=== PATIENT | male | born 1945 | race Caucasian/White ===

== ENCOUNTER 2021-12-24 17:41 | Emergency (ER) | payer OTHER ==
--- OUTSIDE RECORDS SUMMARY | 2021-12-24 17:44 | XMS REPORT | Continuity of Care Document ---
:1945 Author Organization [facility] t Address [address] [place] [address] Care Team Providers Name Role Phone Varun Attending Clinician Unavailable FALLON Attending Clinician Unavailable MARLEN Attending Clinician Unavailable MOISES Attending Clinician Unavailable MD STEFANY DE LEON Attending Clinician Unavailable Varun Admitting Clinician Unavailable DEYANIRA Admitting Clinician Unavailable MD DEYANIRA Admitting Clinician Unavailable Payers Payer Name Policy Type Policy Number Effective Date Expiration Date S [facility] [id number] (MEDICARE REPLACEMENT/ADVANTAGE - PPO) [employer] (MEDICARE [id number] REPLACEMENT/ADVANTAGE - PPO) [employer] CLAIMS OFFICE [id number] Problems Condition Condition Condition Status Onset Resolution Last Treating Co mments Source Name Details Category Date Date Treatment Clinician Date Candidiasi Candidiasi Problem Active [facility] s of skin s of Skin 09-09 Fami ly 00:00: Practic 00 e Coronary Coronary Problem Active 2020-09 [facility] atheroscle Atheroscle 0-19 eduardo rosis rosis 00:00: Practic 00 e History of 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[facility] 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 00:00: Practi c of of 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 Diabetes 3-30 Family mellitus Mellitus 00:00: Practi c 00 e General General Problem Active [facility] finding of Finding of 3-02 eduardo observatio Observatio 00:00: Pr actic n of n of e patient Patient Hyperlipid Hyperlipid Problem Active 2016-09 [facility] emia emia 2- Family 00:00: Practic 00 e Obesity Obesity Problem Active 2016-09 [facility] 2- Family 00:00: Practic 00 e Hypothyroi Hypothyroi Problem Active 2016-09 [facility] dism dism 2- Family 00:00: Practic 00 e Vitamin D Vitamin D Problem Active 2016-09 Keshawn goldsmith deficiency Deficiency 2- Fa eduardo 00:00: Practic 00 e Obstructiv Obstructiv Problem Active 2016-09 [facility] e sleep e Sleep 2- Family apnea Apnea 00:00: Practic syndrome Syndrome 00 e Essential Essential Problem Active 2016-09 Keshawn goldsmith hypertensi Hypertensi 2- Fa eduardo on on 00:00: Practic 00 e 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[facility] 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 00:00: Pr actic 00 e Seasonal Seasonal Problem Active 2016-09 [facility] allergic Allergic 2- Family rhinitis Rhinitis 00:00: Practi c 00 e Gastroesop Gastroesop Problem Active 2016-09 [facility] hageal hageal 2- Family reflux Reflux 00:00: Practic disease Disease 00 e without without esophagiti Esophagiti s s Hypertensi Hypertensi Problem Active 2016-09 [facility] ve ve 2- Family disorder Disorder 00:00: Practi c 00 e Backache Backache Problem Active 2016-09 [facility] 2- Family 00:00: Practic 00 e Clinical Clinical Problem Active 2016-09 [facility] finding Finding 2- Family 00:00: Practic 00 e Finding of Finding of Problem Active 2016-09 [facility] esophagus Esophagus 2- Fami ly 00:00: Practic 00 e Allergies, Adverse Reactions, Alerts Allergy Allergy Status Severity Reaction(s) Onset Inactive Treating Comm ents Source Name Type Date Date Clinician No Known DA Active U 2017-09 [facility]-26 [place] [facility] No Known DA Active U 2017-09 [facility] [place] No Known DA Active U [facility] Allergie 7-05 [place] [facility] 00:[facility] NO KNOWN Drug Active [facility] ALLERGIE [facility] Social History Smoking Status Start Date Stop Date Source Former Smoker [facility] Medications Ordered Filled Start Stop Current Ordering Indication Dosage Frequency Signature Comments Components Source Medication Medication Date Date Medication? Clinician (SIG) Name Name Camryn LukeuDash No 3strip( Q1D Accu-[place] María Elena Plus María Elena Plus s) María Elena Plus Family test strips test strips test P ractic Take 3 Take 3 strips e strips strips Take 3 every day every day strips by miscell. by miscell. every day route for route for by 90 days. 90 days. miscell. route for 90 days. acetaminoph acetaminoph No acetaminop [facility] en 300 en 300 hen 300 Family mg-codeine mg-codeine mg-codeine Practic 30 mg 30 mg 30 mg e tablet tablet tablet acetaminoph acetaminoph No 2capsul Q6H acetaminop [facility] en 500 mg en 500 mg e(s) hen 500 mg Family capsule capsule capsule Practi c Take 2 Take 2 Take 2 e capsules capsules capsules every 6 every 6 every 6 hours by hours by hours by oral route. oral route. oral route. amlodipine amlodipine No amlodipine [facility] 5 mg tablet 5 mg tablet 5 mg F amily Take 1 Take 1 tablet Practic tablet tablet Take 1 e every day every day tablet by oral by oral every day route. route. by oral route. BD Jessica 2nd BD Jessica 2nd No BD Jessica [facility] Gen Pen Gen Pen 2nd Gen Family Needle 32 Needle 32 Pen Needle Practic gauge x gauge x 32 gauge x e " " " carvedilol carvedilol No carvedilol [facility] 25 mg 25 mg 25 mg Family tablet Take tablet Take tablet Practic 1 tablet 1 tablet Take 1 e twice a day twice a day tablet by oral by oral twice a route. route. day by oral route. Centrum Centrum No Centrum [facility] e Silver Silver Silver Family Practic e clopidogrel clopidogrel No clopidogre [facility] 75 mg 75 mg l 75 mg Family tablet Take tablet Take tablet Practic 1 tablet 1 tablet Take 1 e every day every day tablet by oral by oral every day route. route. by oral route. Comfort EZ Comfort EZ No 1needle Q1D Comfort EZ [place] Pen [place] Pen [place] (s) Pen F amily 31 gauge x 31 gauge x [place] 31 Practic 3/16" Take 3/16" Take gauge x e 1 needle 1 needle 316" Take every day every day 1 needle by miscell. by miscell. every day route as route as by directed. directed. miscell. route as directed. CoQ10 10 mg CoQ10 10 mg No 1capsul Q1D CoQ10 10 [facility] capsule capsule e(s) mg capsule Fam irma Take 1 Take 1 Take 1 Practic capsule capsule capsule e every day every day every day by oral by oral by oral route as route as route as directed. directed. directed. cranberry cranberry No cranberry [facility] Family Practic e doxycycline doxycycline No doxycyclin [facility] monohydrate monohydrate e F amily 100 mg 100 mg monohydrat Pract ic tablet tablet e 100 mg e tablet famotidine famotidine No famotidine [facility] 20 mg 20 mg 20 mg Family tablet Take tablet Take tablet Practic 1 tablet 1 tablet Take 1 e twice a day twice a day tablet by oral by oral twice a route as route as day by directed directed oral route for 90 for 90 as days. days. directed for 90 days. fluocinonid fluocinonid No fluocinoni [facility] e 0.05 % e 0.05 % de 0.05 % Fa eduardo topical topical topical Practi c solution solution solution e levothyroxi levothyroxi No levothyrox [facility] ne 50 mcg ne 50 mcg ine 50 mcg Family tablet TAKE tablet TAKE tablet Practic ONE TABLET ONE TABLET TAKE ONE e BY MOUTH BY MOUTH TABLET BY EVERY EVERY MOUTH MORNING ON MORNING ON EVERY AN EMPTY AN EMPTY MORNING ON STOMACH STOMACH AN EMPTY STOMACH losartan 50 losartan 50 No losartan [facility] mg-hydrochl mg-hydrochl 50 F amily orothiazide orothiazide mg-hydroch Practic 12.5 mg 12.5 mg lorothiazi e tablet tablet de 12.5 mg tablet metformin metformin No 1 Q1D metformin [facility] ER 500 mg ER 500 mg ER 500 mg Family 24 hr 24 hr 24 hr Practic tablet,exte tablet,exte tablet,ext e nded nded ended release release release Take 1 Take 1 Take 1 tablet tablet tablet every day every day every day by oral by oral by oral route for route for route for 30 days. 30 days. 30 days. montelukast montelukast No montelukas [facility] 10 mg 10 mg t 10 mg Family tablet Take tablet Take tablet Practic 1 tablet 1 tablet Take 1 e every day every day tablet by oral by oral every day route. route. by oral route. nystatin nystatin No nystatin Keshawn agus 100,000 100,000 100,000 Family unit/gram unit/gram unit/gram Practic topical topical topical e cream APPLY cream APPLY cream TO THE TO THE APPLY TO AFFECTED AFFECTED THE AREA(S) BY AREA(S) BY AFFECTED TOPICAL TOPICAL AREA(S) BY ROUTE 2 ROUTE 2 TOPICAL TIMES PER TIMES PER ROUTE 2 DAY DAY TIMES PER DAY Ozempic Ozempic No .5mg Q1W Ozempic [facility] 0.25 mg or 0.25 mg or 0.25 mg or Family 0.5 mg (2 0.5 mg (2 0.5 mg (2 Practic mg/1.5 mL) mg/1.5 mL) mg/1.5 mL) e subcutaneou subcutaneou subcutaneo s pen s pen us pen injector injector injector Inject 0.5 Inject 0.5 Inject 0.5 mg every mg every mg every week by week by week by subcutaneou subcutaneou subcutaneo s route. s route. us route. rosuvastati rosuvastati No rosuvastat [facility] n 20 mg n 20 mg in 20 mg Famil y tablet Take tablet Take tablet Practic 1 tablet 1 tablet Take 1 e every day every day tablet by oral by oral every day route. route. by oral route. sildenafil sildenafil No sildenafil [facility] 100 mg 100 mg 100 mg Family tablet tablet tablet Practic e tramadol 50 tramadol 50 No tramadol [facility] mg tablet mg tablet 50 mg Fami ly Take 1 Take 1 tablet Practic tablet tablet Take 1 e every 6 every 6 tablet hours by hours by every 6 oral route. oral route. hours by oral route. Travatan Z Travatan Z No Travatan Z [facility] 0.004 % eye 0.004 % eye 0.004 % Family drops drops eye drops Practic INSTILL 1 INSTILL 1 INSTILL 1 e DROP INTO DROP INTO DROP INTO AFFECTED AFFECTED AFFECTED EYE(S) BY EYE(S) BY EYE(S) BY OPHTHALMIC OPHTHALMIC OPHTHALMIC ROUTE ONCE ROUTE ONCE ROUTE ONCE DAILY INTHE DAILY INTHE DAILY EVENING EVENING INTHE EVENING Tresiba Tresiba No Tresiba [facility] FlexTouch FlexTouch FlexTouch Family U-200 U-200 U-200 Practic insulin 200 insulin 200 insulin e unit/mL (3 unit/mL (3 200 mL) mL) unit/mL (3 subcutaneou subcutaneou mL) s pen Give s pen Give subcutaneo 30 units in 30 units in us pen AM and AM and Give 30 increase as increase as units in directed: directed: AM and TDD 80 TDD 80 increase as directed: TDD 80 Vitamin D2 Vitamin D2 No Vitamin D2 [facility] Family Practic e Immunizations Ordered Immunization Filled Immunization Date Status Commen ts Source Name Name COVID-19, mRNA, COVID-19, mRNA, 2020-11-02 Completed [facility] Family LNP-S, PF, 30 LNP-S, PF, 30 00:00:00 Practice mcg/0.3 mL dose mcg/0.3 mL dose (Pfizer-BioNTech) (Pfizer-BioNTech) influenza, influenza, 2020-08-04 Completed [facility] injectable, injectable, 00:00:00 Practice quadrivalent quadrivalent Non-US Vaccine Non-US Vaccine 2019-10-14 Completed [facility] e Family COVID-19 PS COVID-19 PS 00:00:00 Practice (EpiVacCorona) (EpiVacCorona) Vital Signs Vital Name Observation Time Observation Value Comments Source BP Diastolic 2021-09-09 00:00:00 82 mm[Hg] [facility] Practice Height 2021-09-09 00:00:00 68 [in_i] [facility] Practice BMI (Body Mass 2021-09-09 00:00:00 32.6 kg/m2 [facility] e Family Index) Practice BP Systolic 2021-09-09 00:00:00 127 mm[Hg] [facility] Practice Body Weight 2021-09-09 00:00:00 214.6 [lb_av] [facility] Practice BP Diastolic 2021-06-10 00:00:00 68 mm[Hg] [facility] Practice Height 2021-06-10 00:00:00 68 [in_i] [facility] Practice BMI (Body Mass 2021-06-10 00:00:00 33.5 kg/m2 [facility] e Family Index) Practice BP Systolic 2021-06-10 00:00:00 108 mm[Hg] [facility] Practice Body Weight 2021-06-10 00:00:00 220.6 [lb_av] [facility] Practice BP Diastolic 2021-03-01 00:00:00 57 mm[Hg] [facility] Practice Height 2021-03-01 00:00:00 68 [in_i] [facility] Practice BMI (Body Mass 2021-03-01 00:00:00 33 kg/m2 [facility] Family Index) Practice BP Systolic 2021-03-01 00:00:00 121 mm[Hg] [facility] Practice Body Weight 2021-03-01 00:00:00 217 [lb_av] [facility] Practice BP Diastolic 2020-12-01 00:00:00 78 mm[Hg] [facility] Practice Height 2020-12-01 00:00:00 68 [in_i] [facility] Practice BMI (Body Mass 2020-12-01 00:00:00 33.1 kg/m2 [facility] Family Index) Practice BP Systolic 2020-12-01 00:00:00 134 mm[Hg] [facility] Practice Body Weight 2020-12-01 00:00:00 218 [lb_av] [facility] Practice BP Diastolic 2020-08-06 00:00:00 80 mm[Hg] [facility] Height 2020-08-06 00:00:00 68 [in_i] [facility] Practice BMI (Body Mass 2020-08-06 00:00:00 33.3 kg/m2 [facility] Family Index) Practice BP Systolic 2020-08-06 00:00:00 148 mm[Hg] [facility] Body Weight 2020-08-06 00:00:00 219 [lb_av] [facility] Procedures Procedure Date / Time Performed Performing Clinician [facility] e Knee Replacement 2018-07-05 00:00:00 [facility] Gustavo solis Practice Placement of Stent in 2017-04-04 00:00:00 [facility] Practice Colonoscopy 2015-09-04 [facility] 2014-09-04 00:00:00 [facility] Gustavo solis Practice Plan of Care Planned Activity Planned Date Details Comments Source Diagnostic Test 2021-09-09 glucose, fingerstick, Keshawn agus Family Pending 00:00:00 blood [code = Practice glucose, fingerstick, blood] Diagnostic Test 2021-09-09 hemoglobin A1C, [place] Kristal bhatt Pending 00:00:00 fingerstick [code = Practice hemoglobin A1C, fingerstick] Encounters Start End Encounter Admission Attending Care Care Encounter Source Date/Time Date/Time Type Type Clinicians Facility Department ID 2021-09-29 [facility] [id number] [facility] [address] 14:02:32 [id number] [facility] ent Clinics 2021-09-29 Outpatient [facility] [id number] [facility] [address] 12:41:00 [id number] [facility] 2021-09-30 2021-09-30 Outpatient Daniel_T VFP VFP [id number] [address] [place] [address] 06:50:00 06:50:00 [id number] Family Practic e 2021-09-19 2021-09-19 Outpatient Daniel_T VFP VFP [id number] [address] [place] [address] 07:04:00 07:04:00 [id number] Family Practic e 2021-09-09 2021-09-09 Outpatient Daniel_T VFP VFP [id number] [address] [place] [address] 02:03:00 02:03:00 [id number] Family Practic e 2021-09-09 2021-09-09 Otf VFP [place] - [id number] [facility] 00:00:00 00:00:00 [facility] Family IvyJason - Kyle hightower MD: [id number] [address] [facility], [address], [place] [address] , Ph. 2021-08-06 2021-08-06 Outpatient Daniel_T VFP VFP [id number] [address] [place] [address] 05:14:00 05:14:00 [id number] Family Practic e 2021-08-02 2021-08-02 Outpatient [facility] [id number] [address] [place] [address] 00:00:00 00:00:00 [facility] 2021-07-08 2021-07-08 Outpatient Daniel_T VFP VFP [id number] [address] [place] [address] 03:39:00 03:39:00 [id number] Family Practic e 2021-06-10 2021-06-10 Outpatient Daniel_T VFP VFP [id number] [address] [place] [address] 11:04:00 11:04:00 [id number] Family Practic e 2021-06-10 2021-06-10 Otf VFP [place] - [id number] [facility] ill[facility] 00:00:00 00:00:00 [facility] Family IvyJason - Kyle hightower MD: [id number] Emili lund [address] [facility] [address], [place] [address] , Ph. 2021-03-31 2021-03-31 Outpatient Daniel_T VFP VFP [id number] [address] [place] [address] 04:19:00 04:19:00 [id number] Family Practic e 2021-03-31 2021-03-31 Outpatient Daniel_T VFP VFP [id number] [address] [place] [address] 04:19:00 04:19:00 [id number] Family Practic e 2021-03-31 2021-03-31 Outpatient Daniel_T VFP VFP [id number] [address] [place] [address] 04:19:00 04:19:00 [id number] Family Practic e 2021-03-06 2021-03-06 Outpatient Daniel_T VFP VFP [id number] [address] [place] [address] 04:49:00 04:49:00 [id number] Family Practic e 2021-03-01 2021-03-01 Outpatient Daniel_T VFP VFP [id number] [address] [place] [address] 02:46:00 02:46:00 [id number] Family Practic e 2021-03-01 2021-03-01 Otf VFP [place] - [id number] V illage 00:00:00 00:00:00 [facility] Family IvyJason - Kyle hightower MD: [id number] BROOKLYN_DEIRDRE_Luis e [facility] [address], [place] [address] , Ph. 2021-02-28 2021-02-28 Outpatient Daniel_T VFP VFP [id number] [address] [place] [address] 10:21:00 10:21:00 [id number] Family Practic e 2021-01-27 2021-01-27 Outpatient Daniel_T VFP VFP [id number] [address] [place] [address] 12:10:00 12:10:00 [id number] Family Practic e 2021-01-27 2021-01-27 Outpatient Daniel_T VFP VFP [id number] [address] [place] [address] 12:10:00 12:10:00 [id number] Family Practic e 2021-01-03 2021-01-03 Outpatient Daniel_T VFP VFP [id number] [address] [place] [address] 02:46:00 02:46:00 [id number] Family Practic e 2021-01-03 2021-01-03 Outpatient Daniel_T VFP VFP [id number] 09-23 [facility] 02:46:00 02:46:00 [id number] Family Practic e 2020-12-22 2020-12-22 [facility]patient [facility] [id number] [address] [place] [address] 00:00:00 00:00:00 CLEVE [address] 2020-12-15 2020-12-15 Outpatient [facility] [id number] [address] [place] [address] 00:00:00 00:00:[id number] 2020-12-03 2020-12-03 Outpatient Daniel_T VFP VFP [id number] 09-23 [facility] 07:52:00 07:52:00 [id number] Family Practic e 2020-12-01 2020-12-01 Outpatient Daniel_T VFP VFP [id number] 09-23 [facility] 05:33:00 05:33:00 [id number] Family Practic e 2020-12-01 2020-12-01 Otf VFP [place] - [id number] [facility] ill[facility] 00:00:00 00:00:00 [facility] Family Ivy, Medical - Practi katja RODRIGUEZ: [id number] VM_HOU_Shamalathi e Shadow [facility], [address], [place] [address] , Ph. 2020-11-24 2020-11-24 [facility]patient [facility] [id number] [address] [place] [address] 00:00:00 00:00:00 CLEVE [address] 2020-10-10 2020-10-10 Outpatient [facility] [id number] [facility] 11:20:00 11:20:00 [id number] ity [facility] 2020-09-18 2020-09-18 Outpatient Daniel_T VFP VFP [id number] 09-23 [facility] 01:16:00 01:16:00 [id number] Family Practic e 2020-08-10 2020-08-10 Outpatient Daniel_T VFP VFP [id number] 09-23 [facility] 07:51:00 07:51:00 [id number] Family Practic e 2020-08-06 2020-08-06 Outpatient Daniel_T VFP VFP [id number] 09-23 [facility] 03:24:00 03:24:00 [id number] Family Practic e 2020-08-06 2020-08-06 Otf VFP [place] - [id number] [facility] ill[facility] 00:00:00 00:00:00 Susy [facility] Family BijuJason - Pracximena hightower MD: [id number] VM_HOU_Blake lund Shadow [facility], [place] [address] , Ph. 2020-07-15 2020-07-15 Outpatient Biju_T VFP [facility] [id number] [facility] 12:22:00 12:22:00 [id number] Family Practic e 2020-06-29 2020-06-29 Outpatient SPENCER, [facility] [id number] Mobile 00:00:00 00:00:00 ROOSEVELT [address] 2020-05-26 2020-05-26 Outpatient GEE, [facility] [id number] Mobile 00:00:00 00:00:00 CLEVE [address] 2020-05-23 2020-05-24 Outpatient MOISES, [facility] 012 [id number] Mobile 00:00:00 00:00:00 SHANIA [address] 2020-05-06 2020-05-06 Outpatient Biju_Christina VFP [facility] [id number] - [facility] 10:46:00 10:46:00 Family Practic e Results Test Description Test Time Test Comments Results Result Comments Source Hemoglobin A1c measurement device panel 2021-09-09 11:21:23 Test Item Value Reference Range Interpretation Comme nts Hemoglobin A1C Fingerstick: (test code = Hemoglobin A1C Fingerstick :) 7.3 [facility] PracticeGlucose [Mass/volume] in Capillary [id number] 11:21:14 Test Item Value Reference Range Interpretation Comments Blood Glucose: mg/dl (test code = Blood 130 Glucose: mg/dl) [facility] PracticeGlucose [Mass/volume] in Capillary [id number] 14:21:51 Test Item Value Reference Range Interpretation Comments Blood Glucose: mg/dl (test code = Blood 237 Glucose: mg/dl) [facility] [id number]-[id number] (COVID-19) RNA [Presence] in Respiratory specimen by SAM with probe [id number] 22:58:05 Test Item Value Reference Range Interpretation Comments SARS-CoV-2 (COVID-19) RNA Not detected Not-Detected [Presence] in Respiratory specimen by SAM with probe detection (test code = 85910-1)
--- NOTE | 2021-12-24 18:42 | RAD REPORT ---
EXAM DESCRIPTION: CT - Ct Stroke Brain Wo Cont - 12/24/2021 6:34 pm CLINICAL HISTORY: Confusion/alteration of awareness COMPARISON: none TECHNIQUE: Computed axial tomography of the head was obtained. All CT scans are performed using dose optimization technique as appropriate and may include automated exposure control or mA/KV adjustment according to patient size. FINDINGS: An intracranial bleed is not seen . The ventricles are normal in caliber. No extra-axial fluid collection is noted. No significant hypodense area within the brain Fluid within the sinuses/ mastoids is not seen. IMPRESSION: No acute intracranial abnormality is seen. If patient's symptoms persist MRI of the bra in would be recommended. Dr Bowman of the emergency room was notified at 6:36 p.m. December 24, 2021
[2021-12-24 18:51] LABS: Absolute Lymphocytes (CBC) 1.2 K/uL (0.7-4.9); Hematocrit 40.9 % (39.6-49.0); Lymphocytes % 15.2 % (15.3-44.8); MPV 8.1 fL (7.6-11.3); RBC Red Blood Cell Count 4.41 M/uL (4.33-5.43)
[2021-12-24 18:55] LABS: Protime INR 0.94
[2021-12-24 18:56] LABS: Potassium 3.6 mmol/L (3.5-5.1)
--- NOTE | 2021-12-24 19:35 | RAD REPORT ---
EXAM DESCRIPTION: Izabela Single View12/24/2021 6:54 pm CLINICAL HISTORY: Confusion COMPARISON: 2014 FINDINGS: The lungs appear clear of acute infiltrate. The heart is mildly enlarged IMPRESSION: No acute abnormalities displayed
--- NOTE | 2021-12-24 19:42 | RAD REPORT ---
EXAM DESCRIPTION: CTHead angio12/24/2021 7:33 pm CLINICAL HISTORY: Blurred vision COMPARISON: None TECHNIQUE: CT angiogram of the head was obtained. 3D MIPS reconstruction performed. All CT scans are performed using dose optimization technique as appropriate and may include automated exposure control or mA/KV adjustment according to patient size. FINDINGS: Mild to moderate calcified plaque distal internal carotid arteries. Mild plaque within the distal left vertebral artery. The basilar, anterior cerebral, middle cerebral and posterior cerebral arteries are normal caliber. An aneurysm is not seen. A significant stenosis is not noted. IMPRESSION: No acute abnormality is displayed
--- NOTE | 2021-12-24 20:41 | ER ---
Nurse's Notes [facility] Name: Oskar Schmitz Age: 76 yrs Sex: Male : 1945 Arrival Date: 12/24/2021 Time: 17:45 Bed 18 Private MD: Diagnosis: Dysphasia-transient;Altered mental status, unspecified-transient and brief Presentation: 12/24 18:09 Chief complaint: Patient states: I started feeling disoriented 2 and a half hours ago. jb4 I thought it was because of my BGL. I bought a candy bar it didn't help. I had trouble getting home. My did a stroke scale and it was fine. Patient's son or daughter states: I noticed he has had intermittent trouble speaking. He is also unsteady, and he has moments when he seems to think more clearly and then becomes more disoriented. Code stroke called. Coronavirus screen: At this time, the client does not indicate any symptoms associated with coronavirus-19. Ebola Screen: No symptoms or risks identified at this time. Initial Sepsis Screen: Does the patient meet any 2 criteria? No. Patient's initial sepsis screen is negative. Does the patient have a suspected source of infection? No. Patient's initial sepsis screen is negative. Risk Assessment: Do you want to hurt yourself or someone else? Patient reports no desire to harm self or others. Onset of symptoms was December 24, 2021. Transition of care: patient was not received from another setting of care. 18:09 Method Of Arrival: Ambulatory jb4 18:09 Acuity: DESTINEE 2 jb4 18:15 No acute neurological deficit is noted. The patients blood glucose was checked before jd3 arriving to the hospital and was found to be normal. Triage Assessment: 18:15 Neuro: Reports problems talking. jd3 18:15 The onset of the patients symptoms was December 24, 2021 at 15:30. jd3 Stroke Activation: Symtpom onset >3 hours and < 6 hours Physician: Stroke Attending; Name: ; Notified At: ; Arrived At: Physician: Chief Stroke Resident; Name: ; Notified At: ; Arrived At: Physician: Stroke Resident; Name: ; Notified At: ; Arrived At: Physician: ED Attending; Name: ; Notified At: ; Arrived At: Physician: ED Resident; Name: Dr. Pereyra; Notified At: 18:14; Arrived At: 18:15 Historical: - Allergies: 18:20 No Known Allergies; jb4 - Home Meds: 18:21 Plavix Oral [Active]; Metformin Oral [Active]; trigenta [Active]; ozempic [Active]; jb4 - PMHx: 18:20 UT; DM; HTN; jb4 - PSHx: 18:20 heart stents; jb4 - Immunization history:: Adult Immunizations up to date. - Social history:: Smoking status: Patient denies any tobacco usage or history of. Screenin:20 Abuse screen: Denies threats or abuse. Nutritional screening: No deficits noted. jd3 Tuberculosis screening: No symptoms or risk factors identified. 18:20 Fall Risk IV access (20 points). Ambulatory Aid- None/Bed Rest/Nurse Assist (0 pts). jd3 Gait- Normal/Bed Rest/Wheelchair (0 pts) Mental Status- Oriented to own ability (0 pts). Total Kaba Fall Scale indicates No Risk (0-24 pts). Assessment: 18:20 VAN Scoring: Arm Drift: Patients demonstrates NO arm weakness. Patient is VAN Negative. jd3 The patient has not been NPO before screening. The patient is currently on the following diet: regular The patient is alert, and able to follow commands. The patient does not exhibit slurred or garbled speech. The patient is not exhibiting difficulty speaking. The patient does not exhibit difficulty understanding words. The patient is able to swallow own secretions with no drooling or need for suction. Patient tolerated one teaspoon of water. No drooling, immediate coughing, gurgling, or clearing of the throat was noted. The patient tolerated 90mL of water. No drooling, immediate coughing, gurgling, or clearing of the throat was noted. The patient passed the bedside swallow screening. Oral medications may be given as ordered. Contact Physician for further diet orders. Provider notified of bedside swallow screening results: Bobby Pereyra MD. T-PA (Activase) Screening: Contraindications: Rapidly improving condition or minor deficit: Yes. General: Appears in no apparent distress. comfortable, Behavior is calm, cooperative, appropriate for age. Pain: Denies pain. Neuro: Level of Consciousness is awake, alert, obeys commands, Oriented to person, place, time, situation, Briar Cutter are equal bilaterally Moves all extremities. Full function Speech is normal, Facial symmetry appears normal, Pupils are PERRLA, Intact. Cardiovascular: Capillary refill < 3 seconds Patient's skin is warm and dry. Rhythm is regular. Respiratory: Airway is patent Respiratory effort is even, unlabored, Respiratory pattern is regular, symmetrical, Denies cough, shortness of breath. GI: No signs and/or symptoms were reported involving the gastrointestinal system. : No signs and/or symptoms were reported regarding the genitourinary system. EENT: No signs and/or symptoms were reported regarding the EENT system. Derm: Skin is intact, Skin is dry, Skin is normal, Skin temperature is warm. Musculoskeletal: Circulation, motion, and sensation intact. Range of motion: intact in all extremities. 19:42 Reassessment: Patient appears in no apparent distress at this time. No changes from christina previously documented assessment. The pt was taken for his CT \T\ 1923 and returned \T\ 1939, via stretcher. His and daughter are at bedside. He is in NAD. Vital Signs: 18:09 BP 184 / 83; Pulse 78; Resp 16; Temp 98.3(O); Pulse Ox 100% on R/A; Weight 92.99 kg jb4 (R); Height 5 ft. 5 in. (165.10 cm) (R); Pain 0/10; 19:43 BP 150 / 75; Pulse 83; Resp 18; Temp 98.5; Pulse Ox 99% on R/A; Pain 0/10; christina 20:48 BP 106 / 71; Pulse 86; Resp 14; Temp 98.6; Pulse Ox 100% on R/A; Pain 0/10; christina 18:09 Body Mass Index 34.11 (92.99 kg, 165.10 cm) jb4 NIH Stroke Scale Scores: 18:20 NIHSS Score: 0 jd3 18:50 NIHSS Score: 0 kdr 19:40 NIHSS Score: 0 christina ED Course: 17:45 Patient arrived in ED. kz 18:12 Bobby Pereyra MD is Attending Physician. kdr 18:19 Triage completed. jb4 18:21 Arm band placed on right wrist. jb4 18:22 Inserted saline lock: 22 gauge in left antecubital area, using aseptic technique. Blood dh3 collected. 18:25 Oskar Box, RN is Primary Nurse. jd3 18:34 Initial lab(s) drawn, by me, sent to lab. dh3 18:35 CT Stroke Brain w/o Contrast In Process Unspecified. EDMS 18:56 Stroke CXR 1 View In Process Unspecified. EDMS 19:07 EKG done, by ED staff, reviewed by Bobby Pereyra MD. dh3 19:25 Patient has correct armband on for positive identification. Placed in gown. Bed in low jd3 position. Call light in reach. Side rails up X2. Adult w/ patient. front desk monitor on. Pulse ox on. NIBP on. 19:34 CT Head Angio In Process Unspecified. EDMS 19:44 No provider procedures requiring assistance completed. christina 19:44 Patient admitted, IV remains in place. christina 20:38 Travis Rouse MD is Referral Physician. kdr Administered Medications: 20:47 Drug: Aspirin 325 mg Route: PO; christina 20:48 Follow up: Response: No adverse reaction christina 20:48 Drug: Atorvastatin 20 mg Route: PO; christina 20:48 Follow up: Response: No adverse reaction christina Point of Care Testing: Blood Glucose: 18:16 Blood Glucose: 168 mg/dL; jd3 20:59 Blood Glucose: 109 mg/dL; christina Ranges: Outcome: 19:44 Condition: stable christina 19:44 Admitted to christina 20:40 Discharge ordered by . kdr 21:01 Patient left the ED. christina NIH Stroke Scale - NIH Stroke Score Date: 12/24/2021 Time: 18:20 Total Score = 0 1a. Level of Consciousness (LOC) - 0(Alert) 1b. Level of Consciousness (LOC) (Month \T\ Age) - 0(Both) 1c. LOC Commands (Open \T\ Closes Eyes/Communications Designer) - 0(Both) 2. Best Gaze (Lateral Gaze Paresis) - 0(Normal) 3. Visual Field Loss - 0(No visual loss) 4. Facial Palsy - 0(Normal) 5a. Left Arm: Motor (10-second hold) - 0(No drift) 5b. Right Arm: Motor (10-second hold) - 0(No drift) 6a. Left Leg: Motor (5-second hold - always test supine) - 0(No drift) 6b. Right Leg: Motor (5-second hold - always test supine) - 0(No drift) 7. Limb Ataxia (finger/nose \T\ heel/reyna - test with eyes open) - 0(Absent) 8. Sensory Loss (pinprick arms/legs/face) - 0(Normal) 9. Best Language: Aphasia (description/naming/reading) - 0(No aphasia) 10. Dysarthria (speech clarity - read or repeat words) - 0(Normal) 11. Extinction and Inattention (visual/tactile/auditory/spatial/personal) - 0(No abnormality) Initials: jd3 NIH Stroke Scale - NIH Stroke Score Date: 12/24/2021 Time: 18:50 Total Score = 0 1a. Level of Consciousness (LOC) - 0(Alert) 1b. Level of Consciousness (LOC) (Month \T\ Age) - 0(Both) 1c. LOC Commands (Open \T\ Closes Eyes/Communications Designer) - 0(Both) 2. Best Gaze (Lateral Gaze Paresis) - 0(Normal) 3. Visual Field Loss - 0(No visual loss) 4. Facial Palsy - 0(Normal) 5a. Left Arm: Motor (10-second hold) - 0(No drift) 5b. Right Arm: Motor (10-second hold) - 0(No drift) 6a. Left Leg: Motor (5-second hold - always test supine) - 0(No drift) 6b. Right Leg: Motor (5-second hold - always test supine) - 0(No drift) 7. Limb Ataxia (finger/nose \T\ heel/reyna - test with eyes open) - 0(Absent) 8. Sensory Loss (pinprick arms/legs/face) - 0(Normal) 9. Best Language: Aphasia (description/naming/reading) - 0(No aphasia) 10. Dysarthria (speech clarity - read or repeat words) - 0(Normal) 11. Extinction and Inattention (visual/tactile/auditory/spatial/personal) - 0(No abnormality) Initials: [facility] NIH Stroke Scale - NIH Stroke Score Date: 12/24/2021 Time: 19:40 Total Score = 0 1a. Level of Consciousness (LOC) - 0(Alert) 1b. Level of Consciousness (LOC) (Month \T\ Age) - 0(Both) 1c. LOC Commands (Open \T\ Closes Eyes/Communications Designer) - 0(Both) 2. Best Gaze (Lateral Gaze Paresis) - 0(Normal) 3. Visual Field Loss - 0(No visual loss) 4. Facial Palsy - 0(Normal) 5a. Left Arm: Motor (10-second hold) - 0(No drift) 5b. Right Arm: Motor (10-second hold) - 0(No drift) 6a. Left Leg: Motor (5-second hold - always test supine) - 0(No drift) 6b. Right Leg: Motor (5-second hold - always test supine) - 0(No drift) 7. Limb Ataxia (finger/nose \T\ heel/reyna - test with eyes open) - 0(Absent) 8. Sensory Loss (pinprick arms/legs/face) - 0(Normal) 9. Best Language: Aphasia (description/naming/reading) - 0(No aphasia) 10. Dysarthria (speech clarity - read or repeat words) - 0(Normal) 11. Extinction and Inattention (visual/tactile/auditory/spatial/personal) - 0(No abnormality) Initials: christina Signatures: Dispatcher [employer] EDMS Bobby Pereyra MD MD [facility] Mk Schuler RN RN jb4 Marlene Valdez 3 Oskar Box RN RN jd3 Juana Stauffer RN RN bo Zapata, Kelly kz
--- NOTE | 2021-12-24 20:41 | EDPHYS ---
Physician Documentation [facility] Name: Oskar Schmitz Age: 76 yrs Sex: Male : 1945 Arrival Date: 12/24/2021 Time: 17:45 Bed 18 Private MD: ED Physician Bobby Pereyra HPI: 12/24 18:50 This 76 yrs old Male presents to ER via Ambulatory with complaints of Disoriented. kdr 18:50 The patient presents with confusion, disorientation, trouble concentrating. Onset: The kdr symptoms/episode began/occurred suddenly, today, Patient states that sometime between 2 and 3 today he began to have some confusion. There were brief episodes where he states that he was disoriented. He indicated that he was having trouble expressing himself or having little lapses in memory that lasted a few seconds. He was in a store at the time when this began and he initially thought it may be his blood sugar. He purchased a candy bar and ate that but did not feel that his symptoms go transient had resolved. Upon further evaluation, his blood sugar was found to be normal. His symptoms persisted though intermittent since then. He is able to ambulate but tends to drift to the right. Otherwise his exam is unremarkable. During my initial evaluation, the patient had a brief episode where he paused for maybe 5 seconds and then continued speaking. He was aware of the laps. But could not otherwise describe the sensation or experience. While the patient was stable when transferring from the wheelchair to bed. He did continue to have some intermittent periods that were brief but where he could not speak.. Possible causes: CVA or TIA, low blood sugar. Associated signs and symptoms: The patient has no apparent associated signs or symptoms. Current symptoms: In the emergency department the patient's symptoms are unchanged from the initial presentation, despite home interventions. Patient's baseline: Neuro: alert and fully oriented, Motor: no deficits, Ambulation: walks without assistance, Speech: normal for age, The patient has a previous history of. The patient has not experienced similar symptoms in the past. The patient has not recently seen a physician. Patient does admit that there may be a very slight amount of dizziness associated with these episodes. His also related that sometimes when standing from sitting he has some intermittent but brief and transient confusion. Historical: - Allergies: 18:20 No Known Allergies; jb4 - Home Meds: 18:21 Plavix Oral [Active]; Metformin Oral [Active]; trigenta [Active]; ozempic [Active]; jb4 - PMHx: 18:20 PR; DM; HTN; jb4 - PSHx: 18:20 heart stents; jb4 - Immunization history:: Adult Immunizations up to date. - Social history:: Smoking status: Patient denies any tobacco usage or history of. ROS: 18:50 Constitutional: Negative for fever, chills, and weight loss, Eyes: Negative for injury, kdr pain, redness, and discharge, ENT: Negative for injury, pain, and discharge, Neck: Negative for injury, pain, and swelling, Cardiovascular: Negative for chest pain, palpitations, and edema, Respiratory: Negative for shortness of breath, cough, wheezing, and pleuritic chest pain, Abdomen/GI: Negative for abdominal pain, nausea, vomiting, diarrhea, and constipation, Back: Negative for injury and pain, : Negative for injury, bleeding, discharge, and swelling, MS/Extremity: Negative for injury and deformity, Skin: Negative for injury, rash, and discoloration, Psych: Negative for depression, anxiety, suicide ideation, homicidal ideation, and hallucinations, Allergy/Immunology: Negative for hives, rash, and allergies, Endocrine: Negative for neck swelling, polydipsia, polyuria, polyphagia, and marked weight changes, Hematologic/Lymphatic: Negative for swollen nodes, abnormal bleeding, and unusual bruising. 18:50 Neuro: Positive for altered mental status, Transient lapses in speech and thought. Exam: 18:50 Constitutional: This is a well developed, well nourished patient who is awake, alert, kdr and in no acute distress. Head/Face: Normocephalic, atraumatic. Eyes: Pupils equal round and reactive to light, extra-ocular motions intact. Lids and lashes normal. Conjunctiva and sclera are non-icteric and not injected. Cornea within normal limits. Periorbital areas with no swelling, redness, or edema. Neck: Trachea midline, no thyromegaly or masses palpated, and no cervical lymphadenopathy. Supple, full range of motion without nuchal rigidity, or vertebral point tenderness. No Meningismus. Chest/axilla: Normal chest wall appearance and motion. Nontender with no deformity. No lesions are appreciated. Cardiovascular: Regular rate and rhythm with a normal S1 and S2. No gallops, murmurs, or rubs. Normal PMI, no JVD. No pulse deficits. Respiratory: Lungs have equal breath sounds bilaterally, clear to auscultation and percussion. No rales, rhonchi or wheezes noted. No increased work of breathing, no retractions or nasal flaring. Abdomen/GI: Soft, non-tender, with normal bowel sounds. No distension or tympany. No guarding or rebound. No evidence of tenderness throughout. Back: No spinal tenderness. No costovertebral tenderness. Full range of motion. Skin: Warm, dry with normal turgor. Normal color with no rashes, no lesions, and no evidence of cellulitis. MS/ Extremity: Pulses equal, no cyanosis. Neurovascular intact. Full, normal range of motion. Neuro: Awake and alert, GCS 15, oriented to person, place, time, and situation. Cranial nerves II-XII grossly intact. Motor strength 5/5 in all extremities. Sensory grossly intact. Cerebellar exam normal. Normal gait. Psych: Awake, alert, with orientation to person, place and time. Behavior, mood, and affect are within normal limits. 19:06 ECG was reviewed by the Attending Physician. kdr Vital Signs: 18:09 BP 184 / 83; Pulse 78; Resp 16; Temp 98.3(O); Pulse Ox 100% on R/A; Weight 92.99 kg jb4 (R); Height 5 ft. 5 in. (165.10 cm) (R); Pain 0/10; 19:43 BP 150 / 75; Pulse 83; Resp 18; Temp 98.5; Pulse Ox 99% on R/A; Pain 0/10; christina 20:48 BP 106 / 71; Pulse 86; Resp 14; Temp 98.6; Pulse Ox 100% on R/A; Pain 0/10; christina 18:09 Body Mass Index 34.11 (92.99 kg, 165.10 cm) jb4 NIH Stroke Scale Scores: 18:20 NIHSS Score: 0 jd3 18:50 NIHSS Score: 0 kdr 19:40 NIHSS Score: 0 christina MDM: 18:30 Patient medically screened. [facility] 18:50 Data reviewed: vital signs, nurses notes, lab test result(s), EKG, radiologic studies. kdr Counseling: I had a detailed discussion with the patient and/or guardian regarding: the historical points, exam findings, and any diagnostic results supporting the discharge/admit diagnosis, lab results, radiology results. 20:44 ED course: I discussed the findings with the patient his and daughter. I gave him kdr the option of admission here or downtown [facility]. We discussed the fact that the patient may need an MRI for further evaluation. Further that that was not available at this time either here or downtown. Patient opted to be discharged on the regimen as prescribed by Dr. Rouse. They will follow-up this next week or return should things worsen between now and then. Patient was happy with the care provided the plan for discharge and follow-up. 12/24 18:25 Order name: Basic Metabolic Panel; Complete Time: 19:55 kdr 12/24 18:25 Order name: CBC with Diff; Complete Time: 19:55 kdr 12/24 18:25 Order name: Protime (+inr); Complete Time: 19:55 kdr 12/24 18:25 Order name: Ptt, Activated; Complete Time: 19:55 kdr 12/24 18:25 Order name: CT Stroke Brain w/o Contrast; Complete Time: 19:55 kdr 12/24 18:37 Order name: Glucose, Ancillary Testing; Complete Time: 19:55 EDMS 12/24 18:25 Order name: Stroke CXR 1 View; Complete Time: 19:55 kdr 12/24 18:25 Order name: EKG; Complete Time: 18:25 kdr 12/24 18:25 Order name: Accucheck; Complete Time: 18:29 kdr 12/24 18:25 Order name: Cardiac monitoring; Complete Time: 18:58 kdr 12/24 18:25 Order name: EKG - Nurse/Tech; Complete Time: 18:58 kdr 12/24 18:48 Order name: CT Head Angio; Complete Time: 19:55 kdr 12/24 18:25 Order name: IV Saline Lock; Complete Time: 18:29 kdr 12/24 18:25 Order name: Labs collected and sent; Complete Time: 18:35 kdr 12/24 18:25 Order name: NPO; Complete Time: 18:58 kdr 12/24 18:25 Order name: O2 Per Protocol; Complete Time: 18:58 kdr 12/24 18:25 Order name: O2 Sat Monitoring; Complete Time: 18:58 kdr 12/24 18:25 Order name: Stroke Swallow Screen; Complete Time: :58 kdr EC:06 Rate is 83 beats/min. Rhythm is regular, Sinus Rhythm with No ectopy. QRS Booker is kdr Normal. VA interval is normal. QRS interval is normal. QT interval is normal. Clinical impression: NSR w/ Non-specific ST/T Changes. Administered Medications: 20:47 Drug: Aspirin 325 mg Route: PO; christina 20:48 Follow up: Response: No adverse reaction christina 20:48 Drug: Atorvastatin 20 mg Route: PO; christina 20:48 Follow up: Response: No adverse reaction christina Point of Care Testing: Blood Glucose: 18:16 Blood Glucose: 168 mg/dL; jd3 20:59 Blood Glucose: 109 mg/dL; christina Ranges: Critical Glucose Levels:Adult <50 mg/dl or >400 mg/dl <40 mg/dl or >180 mg/dl Disposition Summary: 12/24/21 20:40 Discharge Ordered Location: Home kdr Problem: new kdr Symptoms: are resolved kdr Condition: Stable kdr Diagnosis - Dysphasia - transient kdr - Altered mental status, unspecified - transient and brief kdr Followup: kdr - With: Private Physician - When: 2 - 3 days - Reason: If symptoms return, Further diagnostic work-up, Recheck today's complaints, Continuance of care, Re-evaluation by your physician Followup: kdr - With: Travis Rouse MD - When: 2 - 3 days - Reason: If symptoms return, Further diagnostic work-up, Recheck today's complaints, Continuance of care, Re-evaluation by your physician Discharge Instructions: - Discharge Summary Sheet kdr - Confusion kdr - Mild Neurocognitive Disorder kdr Forms: - Medication Reconciliation Form kdr - Thank You Letter kdr Prescriptions: - aspirin 81 mg Oral tablet,delayed release (DR/EC) - take 1 tablet by ORAL route once daily; 20 tablet; Refills: 0, Product kdr Selection Permitted - atorvastatin 20 mg Oral tablet - take 1 tablet by ORAL route once daily; 20 tablet; Refills: 0, Product kdr Selection Permitted NIH Stroke Scale - NIH Stroke Score Date: 12/24/2021 Time: 18:20 Total Score = 0 1a. Level of Consciousness (LOC) - 0(Alert) 1b. Level of Consciousness (LOC) (Month \T\ Age) - 0(Both) 1c. LOC Commands (Open \T\ Closes Eyes/Fruit Canner) - 0(Both) 2. Best Gaze (Lateral Gaze Paresis) - 0(Normal) 3. Visual Field Loss - 0(No visual loss) 4. Facial Palsy - 0(Normal) 5a. Left Arm: Motor (10-second hold) - 0(No drift) 5b. Right Arm: Motor (10-second hold) - 0(No drift) 6a. Left Leg: Motor (5-second hold - always test supine) - 0(No drift) 6b. Right Leg: Motor (5-second hold - always test supine) - 0(No drift) 7. Limb Ataxia (finger/nose \T\ heel/reyna - test with eyes open) - 0(Absent) 8. Sensory Loss (pinprick arms/legs/face) - 0(Normal) 9. Best Language: Aphasia (description/naming/reading) - 0(No aphasia) 10. Dysarthria (speech clarity - read or repeat words) - 0(Normal) 11. Extinction and Inattention (visual/tactile/auditory/spatial/personal) - 0(No abnormality) Initials: jd3 NIH Stroke Scale - NIH Stroke Score Date: 12/24/2021 Time: 18:50 Total Score = 0 1a. Level of Consciousness (LOC) - 0(Alert) 1b. Level of Consciousness (LOC) (Month \T\ Age) - 0(Both) 1c. LOC Commands (Open \T\ Closes Eyes/Fruit Canner) - 0(Both) 2. Best Gaze (Lateral Gaze Paresis) - 0(Normal) 3. Visual Field Loss - 0(No visual loss) 4. Facial Palsy - 0(Normal) 5a. Left Arm: Motor (10-second hold) - 0(No drift) 5b. Right Arm: Motor (10-second hold) - 0(No drift) 6a. Left Leg: Motor (5-second hold - always test supine) - 0(No drift) 6b. Right Leg: Motor (5-second hold - always test supine) - 0(No drift) 7. Limb Ataxia (finger/nose \T\ heel/reyna - test with eyes open) - 0(Absent) 8. Sensory Loss (pinprick arms/legs/face) - 0(Normal) 9. Best Language: Aphasia (description/naming/reading) - 0(No aphasia) 10. Dysarthria (speech clarity - read or repeat words) - 0(Normal) 11. Extinction and Inattention (visual/tactile/auditory/spatial/personal) - 0(No abnormality) Initials: kdr NIH Stroke Scale - NIH Stroke Score Date: 12/24/2021 Time: 19:40 Total Score = 0 1a. Level of Consciousness (LOC) - 0(Alert) 1b. Level of Consciousness (LOC) (Month \T\ Age) - 0(Both) 1c. LOC Commands (Open \T\ Closes Eyes/Fruit Canner) - 0(Both) 2. Best Gaze (Lateral Gaze Paresis) - 0(Normal) 3. Visual Field Loss - 0(No visual loss) 4. Facial Palsy - 0(Normal) 5a. Left Arm: Motor (10-second hold) - 0(No drift) 5b. Right Arm: Motor (10-second hold) - 0(No drift) 6a. Left Leg: Motor (5-second hold - always test supine) - 0(No drift) 6b. Right Leg: Motor (5-second hold - always test supine) - 0(No drift) 7. Limb Ataxia (finger/nose \T\ heel/reyna - test with eyes open) - 0(Absent) 8. Sensory Loss (pinprick arms/legs/face) - 0(Normal) 9. Best Language: Aphasia (description/naming/reading) - 0(No aphasia) 10. Dysarthria (speech clarity - read or repeat words) - 0(Normal) 11. Extinction and Inattention (visual/tactile/auditory/spatial/personal) - 0(No abnormality) Initials: christina Signatures: Dispatcher [employer] Edgar Monte MD MD cha Rittger, Kevin, MD MD kdr Bryson, James, RN RN jb4 Juana Stauffer RN RN christina
[2021-12-24] MEDS ORDERED: ASPIRIN 81 MG CHEWABLE TABLET ONE (20:46)
[2021-12-24] MEDS ORDERED: ATORVASTATIN 20 MG TAB ONE (20:46)
[2021-12-24 21:16] VITALS: BP 106/71; TEMP 98.6; O2SAT 100
== END 2021-12-24 21:01 | disposition home or self-care (01) ==
LOC: ER 17:41
DX: R41.82 Altered mental status, unspecified (principal); R47.02 Dysphasia; E11.9 Type 2 diabetes mellitus without complications; I10 Essential (primary) hypertension; I25.2 Old myocardial infarction; Z79.01 Long term (current) use of anticoagulants; Z95.818 Presence of other cardiac implants and grafts
CPT/HCPCS: 93005; 85025; 80048; 36415; 85610; 82947; 85730; 70496; 70450; 71045; 99285; Q9967